=== PATIENT | female | born 1960 | race African-American/Black ===

== ENCOUNTER 2017-11-11 19:04 | Emergency (ER) | payer OTHER, MEDICARE ==
[~2017-11-11] VITALS: Ht 162.6 cm; Wt 110.2 kg
[2017-11-11 19:12] VITALS: BP 140/82
--- NOTE | 2017-11-11 20:00 | RADIOLOGY REPORT ---
EXAMINATION: XR WRIST, LEFT CLINICAL INFORMATION: Wrist trauma COMPARISON: None TECHNIQUE: 5 views of the of the left wrist. FINDINGS: Mild Degenerative changes are present at the base of the thumb. No fractures are seen. IMPRESSION: Mild degenerative changes base of thumb
--- NOTE | 2017-11-11 20:15 | ED HAND/WRIST INJURY COMPLAINT ---
History of Present Illness General Chief Complaint: Hand or Wrist Injury Stated Complaint: PT HURT HER LT WRIST AND SWOLLEN Source: patient, family Exam Limitations: no limitations Vital Signs & Intake/Output Vital Signs & Intake/Output Vital Signs Date Time Temp Pulse Resp B/P B/P Pulse O2 O2 Flow FiO2 Mean Ox Delivery Rate 11/12 1911 98.1 97 16 140/82 97 Room Air Allergies Coded Allergies: No Known Allergies (04/24/16) Triage Note: REQUESTING EVALUATION FOR PAINFUL LEFT WRIST. SHE WAS SCOOPING ICE CREAM WHEN SHE FELT PAIN AND SHORTLY AFTER IT STARTED SWELLING. Triage Nurses Notes Reviewed? yes HPI: 57F no significant PMH, was scooping ice cream with her left hand when she heard a pop in her wrist followed by left ulnar wrist pain radiating to elbow. She is able to move the wrist but has pain when she does. Sensation is intact to hand and wrist. She has full ROM. No other complaints. Past History Travel History Traveled to [place] past 21 day No Medical History Any Pertinent Medical History? see below for history Cardiovascular: hypertension Respiratory: asthma Endocrine: diabetes Blood Disorders: anemia Tetanus Vaccine: 04/24/16 Surgical History Surgical History: non-contributory Psychosocial History What is your primary language Occitan Tobacco Use: Never used Family History Hx Contributory? No Review of Systems Review of Systems Constitutional: Reports: no symptoms. EENTM: Reports: no symptoms. Respiratory: Reports: no symptoms. Cardiovascular: Reports: no symptoms. GI: Reports: no symptoms. Genitourinary: Reports: no symptoms. Musculoskeletal: Reports: no symptoms. Skin: Reports: no symptoms. Neurological/Psychological: Reports: no symptoms. Hematologic/Endocrine: Reports: no symptoms. Immunologic/Allergic: Reports: no symptoms. All Other Systems: Reviewed and Negative Physical Exam Physical Exam General Appearance: well developed/nourished, no apparent distress Head: atraumatic, normal appearance Eyes: Bilateral: normal appearance. Ears, Nose, Throat: hearing grossly normal Neck: normal inspection, full range of motion Cardiovascular/Respiratory: normal breath sounds, regular rate/rhythm Back: normal inspection, normal range of motion Shoulder Left: normal range of motion, normal inspection Elbow Left: normal range of motion, normal inspection Forearm Left: normal range of motion, normal inspection, mild tenderness to ulnar epicondyle Wrist Left: normal range of motion, normal inspection, tenderness to ulnar wrist with mild swelling Hand Left: normal inspection, normal range of motion, sensation and movement intact Hand Right: normal inspection, normal range of motion Skin: intact, normal color, warm/dry Progress Differential Diagnosis: contusion, dislocation, fracture, sprain Plan of Care: Orders Procedure Date/time Status Durable Medical Equipment 11/11 2009 Active Diagnostic Imaging: Viewed by Me: Radiology Read. Discussed w/RAD: Radiology Read. Radiology Impression: PATIENT: JAMAAL PARRA PRESENT AGE: 57 PATIENT ACCOUNT NO: [id number] : 62 LOCATION: [facility] ORDERING PHYSICIAN: Bari Smith DO (TBS) SERVICE DATE: 11/11/17 EXAM TYPE: RAD - XRY-WRIST COMPLETE-LEFT EXAMINATION: XR WRIST, LEFT CLINICAL INFORMATION: Wrist trauma COMPARISON: None TECHNIQUE: 5 views of the of the left wrist. FINDINGS: Mild Degenerative changes are present at the base of the thumb. No fractures are seen. IMPRESSION: Mild degenerative changes base of thumb DICTATED BY: Tk Cuevas MD DATE/TIME DICTATED:11/11/171946 MILLED RUBBER TENDER: CATHERINE DATE/TIME TRANSCRIBED:11/11/171946 CONFIDENTIAL, DO NOT COPY WITHOUT APPROPRIATE AUTHORIZATION. <Electronically signed in Other Vendor System> SIGNED BY: Tk Cuevas MD 11/11/171999 Departure Departure Disposition: HOME OR SELF CARE Condition: Stable Clinical Impression Primary Impression: Left wrist sprain Qualifiers: Encounter type: initial encounter Qualified Code: S63.502A - Unspecified sprain of left wrist, initial encounter Referrals: Unknown (PCP/Family) Additional Instructions: Follow up with your PCP. You can use ice for 20 minutes on/off for the swelling. Tylenol/Motrin for pain. Wear the wrist splint when you are able. Return to ER if new or worsening symptoms. Departure Forms: Customer Survey General Discharge Information
== END 2017-11-11 20:17 ==
LOC: ERH 19:04
DX: S63.502A Unspecified sprain of left wrist, initial encounter (principal); X58.XXXA Exposure to other specified factors, initial encounter; Y92.9 Unspecified place or not applicable; Y93.89 Activity, other specified
CPT/HCPCS: 73110-LT